=== PATIENT | male | born 1950 ===

== ENCOUNTER 2017-12-27 21:52 | Emergency (ER) | payer MEDICARE ==
[2017-12-27 22:15] VITALS: BP 163/81; PULSE 79; RESP 16; TEMP 98.9; O2SAT 97
--- NOTE | 2017-12-27 22:39 | ED PDOC ---
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 states earlier today he was attempting to put on pants when he accidentally fell landing on his L shoulder. States since then he's had pain and swelling to the shoulder. Denies numbness, tingling, other injury, head injury, neck pain, chest pain, SOB, hip/pelvic pain. Of note, pt. has not used any meds to help relieve symptoms. Past Medical History Reviewed: Historical Data, Nursing Documentation, Vital Signs Vital Signs: Last Vital Signs Temp 98.9 F 12/27/17 22:12 Pulse 79 12/27/17 22:12 Resp 16 12/27/17 22:12 BP 163/81 H 12/27/17 22:12 Pulse Ox 97 12/27/17 22:12 - Medical History PMH: No Chronic Diseases - Family History Family History: States: No Known Family Hx - Home Medications Home Medications: Ambulatory Orders Medication Instructions Recorded Naproxen [Naprosyn] 500 mg PO BID PRN #10 tab 12/27/17 - Allergies Allergies/Adverse Reactions: Allergies Allergy/AdvReac Type Severity Reaction Status Date / Time No Known Allergies Allergy Verified 12/27/17 22:07 Review of Systems ROS Statement: Except As Marked, All Systems Reviewed And Found Negative Physical Exam - Physical Exam Appears: Positive for: Well, Non-toxic, No Acute Distress Head Exam: Positive for: ATRAUMATIC, NORMAL INSPECTION, NORMOCEPHALIC Skin: Positive for: Normal Color, Warm. Negative for: Rash Eye Exam: Positive for: Normal appearance Cardiovascular/Chest: Positive for: Chest Non Tender Pulses-Radial (L): 2+ Pulses-Radial (R): 2+ Back: Positive for: Normal Inspection. Negative for: Vertebral Tenderness ( including cervical spine) Extremity: Positive for: Capillary Refill (< 2 seconds of LEFT upper extremity) , Other (L lateral shoulder with mild tenderness without deformity or clavicular tenderness; No elbow tenderness; no break in skin integrity of LEFT upper extremity) Neurologic/Psych: Positive for: Alert, Oriented (x3), Gait (steady, unassisted) . Negative for: Aphasia, Facial Droop - ECG O2 Sat by Pulse Oximetry: 97 - Progress ED Course And Treament: Ultram 50mg PO, L shoulder x-ray ordered. L shoulder x-ray: no fx or dislocation as per vrad report. L shoulder immobilized in sling applied by PA. Disposition - Clinical Impression Clinical Impression: Shoulder injury - Patient ED Disposition Is Patient to be Admitted: No - Disposition Referrals: [facility] [Outside] Napoleon Gan III, MD [Staff Provider] - Disposition: Routine/Home Disposition Time: 23:05 Condition: STABLE Additional Instructions: JENNIE BAZAN, thank you for letting us take care of you today. Your provider was Keturah Pyle MD and you were treated for LT SHOULDER PAIN. The emergency medical care you received today was directed at your acute symptoms. If you were prescribed any medication, please fill it and take as directed. It may take several days for your symptoms to resolve. Return to the Emergency Department if your symptoms worsen, do not improve, or if you have any other problems. Please contact your doctor or call one of the physicians/clinics you have been referred to that are listed on the Patient Visit Information form that is included in your discharge packet. Bring any paperwork you were given at discharge with you along with any medications you are taking to your follow up visit. Our treatment cannot replace ongoing medical care by a primary care provider outside of the emergency department. Thank you for allowing the [facility] team to be part of your care today. If you had an X-Ray or CT scan: A Radiologist will review the ED reading if any change in treatment is needed we will contact you. If you had a blood, urine, or wound culture: It will take several days for the results, if any change in treatment is needed we will contact you. If you had an STI test: It will take 48 hours for the results. Please call after 1 week if you have not heard back. Prescriptions: Naproxen [Naprosyn] 500 mg PO BID PRN #10 tab PRN Reason: Pain Instructions: Shoulder Sprain (DC) Print Language: NAMIBIAN
--- NOTE | 2017-12-28 08:48 | RAD ---
Date of service: 12/27/2017 PROCEDURE: Radiographs of the Left Shoulder HISTORY: trauma COMPARISON: No prior. FINDINGS: BONES: No acute fracture or destructive bony lesion identified. JOINTS: Degenerative osteophyte development and soft tissue calcifications seen related to the acromioclavicular joint indicative moderate degenerative joint disease. Borderline glenohumeral degenerative cortical sclerosis. No subluxation or dislocation identified. SOFT TISSUES: Normal. OTHER FINDINGS: None. IMPRESSION: No acute fracture or dislocation left shoulder. Moderate degenerative acromioclavicular changes, borderline at the glenohumeral joint.
== END 2017-12-27 23:30 | disposition home or self-care (01) ==
LOC: H.ER 21:52
DX: S49.92XA Unspecified injury of left shoulder and upper arm, initial encounter (principal); W01.0XXA Fall on same level from slipping, tripping and stumbling without subsequent striking against object, initial encounter; Y93.E8 Activity, other personal hygiene